=== PATIENT | female | born 1995 | race Two or more races ===

== ENCOUNTER 2016-10-06 13:15 | Emergency (ER) | payer BC, MEDICAID ==
[~2016-10-06 13:15] MED LIST: LEVAAER4
[2016-10-06] MEDS ORDERED: SODIUM CHLORIDE 0.9% 1,000 ML IVB ONE (13:55)
[2016-10-06 14:02] LABS: Basophils # (auto) 0 uL; Basophils % (auto) 0.2 % (0.0-2.0); CONDITION Y; Eosinophils # (auto) 0 uL; Eosinophils % (auto) 0.4 % (0.0-7.0); Hematocrit 43.8 % (36.0-46.0); Hemoglobin 14.4 g/dL (12.2-16.2); Mean Corpuscular Hemoglobin 29.5 pg (28.0-32.0); Mean Corpuscular Hgb Conc. 32.9 g/dL (32.0-36.0); Mean Corpuscular Volume 89.7 fL (80.0-100.0); Mean Platelet Volume 9.8 fL (7.4-10.4); Monocytes % (auto) 9.1 % (0.0-12.0); Neutrophils # (auto) 7.5 uL; Neutrophils % (auto) 71.3 % (37.0-80.0); Platelet Count (auto) 297 10^3/uL (140-450); Red Cell Distribution Width 13.2 % (11.6-16.0); White Blood Cell 10.6 10^3/uL (4.4-10.8)
[2016-10-06 15:05] LABS: Albumin 3.9 g/dL (3.4-5.0); BUN/Creatinine Ratio 9.1; Calcium 8.6 mg/dL (8.5-10.1); Magnesium 1.9 mg/dL (1.6-2.6)
[2016-10-06 15:08] LABS: Bilirubin, Total 1.1 mg/dL (0.2-1.0); Total Protein 7.8 g/dL (6.4-8.2)
[2016-10-06 15:31] LABS: Urine Bilirubin Negative (Negative); Urine Blood Negative /uL (Negative); Urine Color Yellow (Yellow); Urine Glucose Normal (Normal); Urine Ketone Negative (Negative); Urine Nitrite Negative (Negative); Urine RBC 5 /hpf (0 - 4); Urine Squamous Epithelial Cell FEW /hpf (<5); Urine Urobilinogen Normal (Negative)
[2016-10-06 18:14] VITALS: BP 117/58
== END 2016-10-07 01:28 | disposition left against medical advice (07) ==
LOC: EDBD 13:15 → ER 13:15
DX: O99.351 Diseases of the nervous system complicating pregnancy, first trimester (principal); G40.909 Epilepsy, unspecified, not intractable, without status epilepticus; R41.82 Altered mental status, unspecified; Z91.14 Patient's other noncompliance with medication regimen; Z3A.08 8 weeks gestation of pregnancy
CPT/HCPCS: 36415; 70450; 80053; 80185; 80307; 80320; 81001; 81025; 83735; 84702; 85025; 93005; 94761; 96360; 99285; J7030

== ENCOUNTER 2021-08-22 20:13 | Observation (INO) | payer MEDICAID ==
[~2021-08-22] VITALS: Ht 160 cm; Wt 61.2 kg
[2021-08-22] MEDS ORDERED: LACTATED RINGER'S 1,000 ML IV ONE (20:45)
[2021-08-22] MEDS ORDERED: TERBUTALINE SULFATE 1 MG/ML 1ML VIAL SC PRN (21:15)
[2021-08-22] MEDS ORDERED: LACTATED RINGER'S 1,000 ML IV SCH (21:15)
[2021-08-22] MEDS ORDERED: ONDANSETRON HCL 4 MG/2 ML VIAL IV PRN (21:15)
[2021-08-22] MEDS ORDERED: PREN-96 OR (21:46)
[2021-08-22] MEDS ORDERED: NIF10C PO (22:25)
[2021-08-22 22:42] LABS: Urine Bacteria NONE SEEN /hpf (None Seen); Urine Blood Negative /uL (Negative); Urine WBC 1 /hpf (0 - 5)
[2021-08-22 22:53] LABS: Alcohol, Urine < 3.0 mg/dL (0-10); Amphetamine Screen, Urine NEGATIVE (NEGATIVE); Barbiturate Scree,Urine NEGATIVE (NEGATIVE); Benzodiazephine Screen, Urine NEGATIVE (NEGATIVE); Cannabinoid Screen, Urine NEGATIVE (NEGATIVE); Cocaine Screen, Urine NEGATIVE (NEGATIVE); Opiate Scree,Urine NEGATIVE (NEGATIVE); Phencyclidine Screen, Urine NEGATIVE (NEGATIVE)
== END 2021-08-22 23:00 | disposition home or self-care (01) ==
LOC: LDRP 20:13
PROVIDERS: ADMIT Obstetrics & Gynecology; ATTEND Obstetrics & Gynecology
DX: O62.9 Abnormality of forces of labor, unspecified (principal); O21.2 Late vomiting of pregnancy; O26.892 Other specified pregnancy related conditions, second trimester; R42 Dizziness and giddiness; Z3A.26 26 weeks gestation of pregnancy; Z79.899 Other long term (current) drug therapy; Z98.890 Other specified postprocedural states
CPT/HCPCS: 59025; 80307; 81001; 81002; 82962; 94760; 96361; 96372; 96374; G0378; J2405; J3105; 96360

== ENCOUNTER 2021-11-19 00:09 | Observation (INO) | payer MEDICAID ==
[~2021-11-19] VITALS: Ht 160 cm; Wt 68.0 kg
[~2021-11-19 00:09] MED LIST changes: +NIF10C PO; +PREN-96 OR
== END 2021-11-19 01:53 | disposition home or self-care (01) ==
LOC: LDRP 00:09
PROVIDERS: ADMIT Obstetrics & Gynecology; ATTEND Obstetrics & Gynecology
DX: O62.9 Abnormality of forces of labor, unspecified (principal); Z3A.38 38 weeks gestation of pregnancy
CPT/HCPCS: 59025; G0378

== ENCOUNTER 2021-11-20 01:50 | Inpatient (IN) | payer MEDICAID ==
[~2021-11-20] VITALS: Ht 160 cm; Wt 80.7 kg
[2021-11-20] MEDS: IBUPROFEN 800 MG TAB PO SCH ×2 (00:36→05:45)
[2021-11-20] MEDS ORDERED: WITCH HAZEL-GLYCERIN PAD TOP PRN (02:45)
[2021-11-20] MEDS ORDERED: LACTATED RINGER'S 1,000 ML IV SCH (02:45)
[2021-11-20] MEDS ORDERED: PROMETHAZINE HCL 25 MG/ML 1ML IV PRN (02:45)
[2021-11-20] MEDS ORDERED: PHISODERM TOP SOLN 240ML BTL TOP PRN (02:45)
[2021-11-20] MEDS ORDERED: DERMOPLAST 60ML BOTTLE TOP PRN (02:45)
[2021-11-20 04:08] LABS: Basophils # (auto) 0.2 10 ^3/uL (0-0.2); Basophils % (auto) 1.9 % (0.0-2.0); Eosinophils # (auto) 0.1 10 ^3/uL (0-0.8); Eosinophils % (auto) 1.2 % (0.0-7.0); Hematocrit 36.4 % (36.0-46.0); Hemoglobin 11.6 g/dL (12.2-16.2); Lymphocytes # (auto) 1.9 10 ^3/uL (0.4-5.4); Lymphocytes % (auto) 16.9 % (10.0-50.0); Mean Corpuscular Hemoglobin 27.9 pg (28.0-32.0); Mean Corpuscular Volume 87.2 fL (80.0-100.0); Monocytes # (auto) 0.6 10 ^3/uL (0-1.3); Monocytes % (auto) 5.1 % (0.0-12.0); Neutrophils # (auto) 8.4 10 ^3/uL (1.6-8.6); Neutrophils % (auto) 74.9 % (37.0-80.0); Nucleated Red Blood Cells % 0.1 %; Red Blood Cells 4.17 10^6/uL (4.0-5.20); Red Cell Distribution Width 15.4 % (11.8-14.3); White Blood Cell 11.2 10^3/uL (4.4-10.8)
[2021-11-20 04:10] LABS: Albumin 2.8 g/dL (3.4-5.0); Calcium 8.4 mg/dL (8.5-10.1); Potassium 3.7 mmol/L (3.5-5.1)
[2021-11-20 04:11] LABS: Amphetamine Screen, Urine NEGATIVE (NEGATIVE); Barbiturate Scree,Urine NEGATIVE (NEGATIVE); Benzodiazephine Screen, Urine NEGATIVE (NEGATIVE); Cannabinoid Screen, Urine NEGATIVE (NEGATIVE); Cocaine Screen, Urine NEGATIVE (NEGATIVE); Opiate Scree,Urine NEGATIVE (NEGATIVE); Phencyclidine Screen, Urine NEGATIVE (NEGATIVE)
[2021-11-20 04:13] LABS: BUN/Creatinine Ratio 9.3; Bilirubin, Total 0.6 mg/dL (0.2-1.0)
[2021-11-20] MEDS ORDERED: OXYTOCIN 10UNIT/ML 1ML VIAL IM ONE (04:15)
[2021-11-20 04:20] LABS: Urine Bacteria NONE SEEN /hpf (None Seen); Urine Blood 3+ /uL (Negative); Urine Mucus FEW (None Seen); Urine Specific Gravity 1.028 (1.001-1.035); Urine WBC 5 /hpf (0 - 5)
[2021-11-20 05:02] LABS: INR 0.91 (0.9-1.15); Partial Thromboplastin Time 24.8 sec (24.6-33.4)
[2021-11-20 07:00] VITALS: BP 118/65
[2021-11-20 11:00] VITALS: BP 114/56
[2021-11-20 15:00] VITALS: BP 120/67
[2021-11-20 19:11] VITALS: BP 113/60
[2021-11-20 23:33] VITALS: BP 111/62
[2021-11-21] MEDS ORDERED: IBUPROFEN 800 MG TAB PO PRN (01:00)
[2021-11-21 02:55] VITALS: BP 115/65
[2021-11-21 06:06] LABS: RPR Non Reactive (Non Reactive)
[2021-11-21 07:00] VITALS: BP 122/68
[2021-11-21 08:06] LABS: Rubella Antibodies, IgG <0.90 index (Immune >0.99)
[2021-11-21 11:00] VITALS: BP 120/60
[2021-11-21 15:00] VITALS: BP 111/62
== END 2021-11-21 12:15 | disposition home or self-care (01) | DRG 566 ==
LOC: LDRP 01:50
PROVIDERS: ADMIT Obstetrics & Gynecology; ATTEND Obstetrics & Gynecology
PROC: 10E0XZZ Delivery of Products of Conception, External Approach (ICD-10-PCS; principal; 2021-11-20)
DX: O62.3 Precipitate labor (principal); Z20.822 Contact with and (suspected) exposure to COVID-19
CPT/HCPCS: 36415; 59025; 59414; 80053; 80307; 81001; 81002; 84550; 85025; 85610; 85730; 86592; 86703; 86762; 86850; 86900; 86901; 87340; 94760; 96372; G0378